=== PATIENT | male | born 1990 | race Caucasian/White ===

== ENCOUNTER 2018-04-22 18:33 | Inpatient (IN) | payer BC, OTHER ==
[~2018-04-22] VITALS: Ht 182.9 cm; Wt 65.8 kg
[2018-04-22 20:15] VITALS: BP 118/63
--- NOTE | 2018-04-22 20:25 | NUR ---
INTAKE ASSESSMENT BP: 118/63, HR:60, RR:16, SpO2:95%, T:98 Pt is in stable condition and is able to be admitted on the unit. Unit protocols regarding medications and vital signs Q4H were explained. Pt verbalized understanding. Will continue admission upon arrival on the unit.
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
[2018-04-23] MEDS ORDERED: LORAZEPAM 1 MG TABLET PO PRN (00:30)
[2018-04-23] MEDS ORDERED: ONDANSETRON ODT 4 MG TAB.RAPDIS SL PRN (00:30)
[2018-04-23] MEDS ORDERED: MIRALAX 17 GM POWD.PACK PO PRN (00:30)
[2018-04-23] MEDS ORDERED: LORAZEPAM 2 MG/1 ML VIAL IM PRN (00:30)
[2018-04-23] MEDS ORDERED: ACETAMINOPHEN 325 MG TABLET PO PRN (00:30)
[2018-04-23] MEDS ORDERED: MAGNESIUM HYDROXIDE 30 ML LIQUID UDC PO PRN (00:30)
[2018-04-23] MEDS ORDERED: DICYCLOMINE HCL 20 MG TABLET PO PRN (00:30)
[2018-04-23] MEDS ORDERED: LOPERAMIDE HCL 2 MG CAPSULE PO PRN ×2 (00:30)
[2018-04-23] MEDS ORDERED: diphenhydrAMINE 50 MG CAPSULE PO PRN (00:30)
[2018-04-23] MEDS ORDERED: ONDANSETRON 4 MG/2 ML VIAL IM PRN (00:30)
[2018-04-23] MEDS ORDERED: BUPRENORPHINE HCL 2 MG TAB.SUBL SL PRN (00:30)
[2018-04-23] MEDS ORDERED: IBUPROFEN 400 MG TABLET PO PRN (00:30)
[2018-04-23] MEDS ORDERED: THIAMINE HCL 200 MG/2 ML VIAL IM ONE (00:30)
[2018-04-23] MEDS ORDERED: MAG HYDROX/AL HYDROX/SIMETH 30 ML LIQUID UDC PO PRN (00:30)
[2018-04-23 00:40] VITALS: BP 121/69
[2018-04-23 01:36] LABS: ALANINE AMINOTRANSFERASE 33 U/L (16-63); ALKALINE PHOSPHATASE 72 U/L (50-136); AMYLASE 77 U/L (25-115); ASPARTATE AMINOTRANSFERASE 22 U/L (15-37); BILIRUBIN,TOTAL 0.5 mg/dL (0.2-1.0); CARBON DIOXIDE 31 mmol/L (21-32); CHLORIDE 100 mmol/L (98-107); CREATININE 0.9 mg/dL (0.6-1.3); GLUCOSE 109 mg/dL (74-106); LIPASE 111 U/L (73-393); MAGNESIUM 1.9 mg/dL (1.8-2.4); POTASSIUM 3.8 mmol/L (3.5-5.1); TOTAL PROTEIN, SERUM 6.8 g/dL (6.4-8.2); UREA NITROGEN, BLOOD 15 mg/dL (7-18)
[2018-04-23 01:44] LABS: BASOPHILS # (AUTO) 0.1 K/uL (0.0-8.0); EOSINOPHILS # (AUTO) 0.1 K/uL (0.0-0.7); EOSINOPHILS % (AUTO) 2.2 % (0.0-7.0); HEMATOCRIT 42.6 % (36.7-47.1); HEMOGLOBIN 15.1 g/dL (12.5-16.3); LYMPHOCYTES # (AUTO) 1.5 K/uL (20.0-40.0); LYMPHOCYTES % (AUTO) 25.8 % (20.5-51.5); MEAN CORPUSCULAR HEMOGLOBIN 33.8 uug (23.8-33.4); MEAN CORPUSCULAR HGB CONC 35 g/dL (32.5-36.3); MEAN CORPUSCULAR VOLUME 95.6 fL (73.0-96.2); MONOCYTES # (AUTO) 0.4 K/uL (2.0-10.0); MONOCYTES % (AUTO) 7.7 % (0.0-11.0); NEUTROPHILS # (AUTO) 3.7 K/uL (1.8-8.9); NEUTROPHILS % (AUTO) 63.3 % (38.5-71.5); PLATELET COUNT (AUTO) 144 K/uL (152-348); RED BLOOD CELL COUNT(AUTO) 4.45 MIL/uL (4.06-5.63); WHITE BLOOD COUNT (AUTO) 5.8 K/uL (3.6-10.2)
[2018-04-23 01:45] LABS: ETHANOL < 3 MG/DL (0-0)
[2018-04-23] MEDS ORDERED: PROP40SO PO (03:57)
[2018-04-23] MEDS ORDERED: MV-M1TAB21 PO (03:57)
[2018-04-23] MEDS ORDERED: MESA1.2T3 PO (03:57)
[2018-04-23] MEDS ORDERED: ONDA4TAB11 PO (03:57)
[2018-04-23] MEDS ORDERED: TRAZ-214 PO (03:57)
[2018-04-23] MEDS ORDERED: CLON0.1T PO (03:57)
[2018-04-23] MEDS ORDERED: LISD30CA2 PO (03:57)
[2018-04-23] MEDS ORDERED: ACET-2605 PO (03:57)
[2018-04-23 04:21] VITALS: BP 125/68
--- NOTE | 2018-04-23 04:24 | NUR ---
CIWA/COWS Patient is noted awake. He was able to provide urine drug screen. CIWA/COWS assessment completed. Patient is noted with increased anxiety and intermittent nausea. Patient requested for a small snack and denies any medication at the moment. He states "ill wait until the morning." Will continue to monitor.
[2018-04-23 05:08] LABS: *AMPHETAMINE, URINE POSITIVE (NEGATIVE); *BARBITURATE, URINE NEGATIVE (NEGATIVE); *CANNABINOID, URINE NEGATIVE (NEGATIVE); *COCCAINE, URINE NEGATIVE (NEGATIVE); *OPIATE, URINE POSITIVE (NEGATIVE); *PHENCYCLIDINE SCREEN,URINE NEGATIVE (NEGATIVE)
--- NOTE | 2018-04-23 07:21 | NUR ---
End of Shift Patient is in his room sleeping. Breathing even and non labored. Patient is a 27 year old male admitted for ETOH withdrawal and intermittent use of Heroin. Patient is currently receiving PRN medications for increased signs and symptoms of withdrawal. No PRN medications administered. Patient is noted to be restless and verbalizing increased anxiety. Last noted CIWA 3 and COWS 3. Patient noted to sleep a total of 6 hours. All needs attended to promptly. Will endorse to continue plan of care as ordered.
[2018-04-23 08:00] VITALS: BP 102/52
--- NOTE | 2018-04-23 08:00 | NUR ---
Start of Shift Notes/COWS/CIWA Assessment: Received endorsement from night nurse. Patient is a 27 year old male admitted for ETOH/opiate withdrawal who was placed on PRNs at this time. Per night report, patient was admitted during the night. No PRNs given. Last COWS 3/CIWA 3. Slept for 6 hours. Patient is currently in his room. Appears disheveled, uncombed hair, unshaven, with dark circles under eyes. Poor regards to hygiene noted. Appears with worried facial expression, affect is flat. Encouraged maintenance of personal hygiene and space. Redirection provided. Reassurance provided. Educated patient on his current plan of care for the day and his medication regimen. Encouraged oral fluid intake and encouraged group participation to learn new skills to prevent relapse. Will continue to monitor and provide support.
[2018-04-23] MEDS: THIAMINE HCL 100 MG TABLET PO SCH (09:01)
[2018-04-23] MEDS: FOLIC ACID 1 MG TABLET PO SCH (09:01)
[2018-04-23] MEDS: MULTIVITAMINS,THERAPEUTIC TABLET PO SCH (09:01)
[2018-04-23] MEDS: LORAZEPAM 1 MG TABLET PO PRN ×3 (09:01→20:59)
--- NOTE | 2018-04-23 09:01 | NUR ---
Ativan 1 mg PO given: Patient's CIWA 14, presented with restlessness, anxiety, agitation, intermittent perspiration and gross tremors. Medicated patient with Ativan 1 mg PO as ordered. Will monitor for effectiveness.
--- NOTE | 2018-04-23 10:01 | NUR ---
Re-assessment: Ativan CIWA 12, patient continues to present with gross tremors, anxiety, agitation and intermittent perspiration. He verbalizes "it's less now." PRN Ativan 1 mg PO was effective.
[2018-04-23 12:00] VITALS: BP 125/81
--- NOTE | 2018-04-23 12:00 | NUR ---
COWS/CIWA Assessment: COWS 8,CIWA 14, patient continues to present with intermittent perspiration, gross tremors, anxiety, agitation, sweats, and restlessness and generalized discomfort. Will continue to medicate patient as ordered and provide support.
[2018-04-23] MEDS: METHOCARBAMOL 750 MG TABLET PO PRN (12:05)
[2018-04-23] MEDS: CLONIDINE HCL 0.1 MG TABLET PO PRN (12:05)
--- NOTE | 2018-04-23 12:05 | NUR ---
Ativan 1 mg/Robaxin 750mg/Clonidine 0.1mg PO given: Patient noted with CIWA 14 due to increased anxiety, chills, hot flashes, intermittent perspiration, restlessness and generalized discomfort. He states "I feel achy, like a 5 out of 10." Medicated patient with Ativan 1 mg, Robaxin 750 mg PO and Clonidine 0.1mg PO as ordered. Will monitor for effectiveness.
--- NOTE | 2018-04-23 13:05 | NUR ---
CIWA Re-assessment/Re-assessment Ativan, Clonidine and Robaxin: CIWA 8, patient continues to present with gross tremors, anxiety, and agitation. Patient verbalizes relief from chills and hot flashes, as well as myalgia. He rates his pain level is now a 1 out of 10. PRN Ativan, Clonidine and Robaxin were effective.
[2018-04-23 16:00] VITALS: BP 101/71
--- NOTE | 2018-04-23 16:35 | NUR ---
COWS/CIWA Assessment COWS 7/CIWA 4, patient continues to present with restlessness, chills, hot flashes, tremors felt but not observed. No need to medicate patient at this dimitris per PRN orders.
[2018-04-23] MEDS ORDERED: MESALAMINE 1.2 GM PO SCH (18:00)
--- NOTE | 2018-04-23 19:05 | NUR ---
End of Shift Notes: Patient continues to be on PRNs as ordered to manage ETOH and opiate withdrawal symptoms. VS monitored closely. No significant abnormalities noted. Withdrawal symptoms were closely monitored. Initial COWS 9/CIWA 14, patient presented with gross tremors, anxiety, agitation, intermittent perspiration, facial flushing, chills, hot flashes, myalgia, nervousness, restlessness, difficulty concentrating, anhedonia, fatigue, malaise, palpitations and tachycardia. Medicated patient with Ativan 1 mg PO for CIWA 14 at 0901 and at 1205. He was also given PRN Robaxin and Clonidine at 1205 for chills, hot flashes, myalgia and intermittent perspiration. Last COWS 7/CIWA 4. Unable to participate in group and activities due to his withdrawal symptoms. Appetite fair. All needs met and attended. Will continue to monitor closely.
--- NOTE | 2018-04-23 19:30 | NUR ---
Start of Shift Patient Received. Patient is noted in his bed, awake, alert and verbally responsive. Breathing even and non labored. Per endorsement, patient continues on PRN medications for increased signs and symptoms of withdrawal. He has been noted to be isolative to room, flat, depressed affect. Patient received PRN Robaxin, Clonidine, and Ativan x2. Last noted CIWA 12 and COWS 12. Upon rounds, patients room is noted to be odorous and cluttered with trash. All needs attended to promptly. Will continue plan of care as ordered.
--- NOTE | 2018-04-23 19:30 | NUR ---
Start of Shift Patient Received. Patient is noted in his bed, awake, alert and verbally responsive. Breathing even and non labored. Per endorsement, patient has completed a 5 day Ativan taper and is set for discharge tomorrow 04/24/18. Patient was noted to be isolative to room and only participating in smoking breaks. Patient received PRN Vistaril and Clonidine with medication noted to be effective. Last noted CIWA 6. Upon rounds, patient is noted to be isolative, disheveled, flat, with depressed affect. All needs attended to promptly. Will continue plan of care as ordered. Addendum: 04/23/18 at 2242 by CAREN DA SILVA LVN ENTERED IN ERROR
[2018-04-23 20:56] VITALS: BP 115/74
--- NOTE | 2018-04-23 21:05 | NUR ---
PRN Medication Administration Patient is noted verbalizing increased anxiety, restlessness, agitation, increased sweats and chills, tremulous, and light sensitivity. CIWA noted to be 13. PRN Ativan 1mg administered. Patient is requesting for Trazodone noted to be given at a later time. Will continue to monitor.
[2018-04-23] MEDS: TRAZODONE 100 MG TABLET PO SCH (21:56)
--- NOTE | 2018-04-23 22:00 | NUR ---
PRN Medication Reassessment patient is noted in bed awake and verbally responsive. Breathing even and non labored. Patient received PRN Ativan 1 mg for CIWA of 13. Patient is able to verbalize medication was effective in minimizing anxiety, agitation, restlessness. CIWA noted to be 4. PRN Ativan noted effective. Will continue to monitor.
--- NOTE | 2018-04-24 00:53 | NUR ---
Vitals Refused Patient is noted in bed with eyes closed. Breathing even and non labored. No signs of restlessness of discomfort noted. Vital signs refused. COWS and CIWA not completed as per order. Will continue to monitor.
--- NOTE | 2018-04-24 04:00 | NUR ---
Vitals Refused Patient is noted in bed sleeping. breathing even and non labored. No signs of pain or discomfort noted. No facial grimacing noted. Vitals Refused. COWS and CIWA not able to be completed as per order. All needs attended to promptly. Will continue plan of care as ordered.
[2018-04-24 04:06] LABS: HEPATITIS B SURFACE AG Negative (Negative)
[2018-04-24] MEDS: MESALAMINE 400 MG CAPSULE.ER PO SCH ×3 (06:21→21:00)
--- NOTE | 2018-04-24 07:04 | NUR ---
End of Shift Patient is in bed sleeping but easily arousable to verbal stimuli. Breathing even and non labored. Patient continues on PRN medications for increased signs and symptoms of withdrawal. Patient continues to be isolative, flat, depressed affect. PRN Ativan administered with medication noted to be effective. Last noted CIWA 4 and COWS 3. Patient noted to sleep a total of 8 hours. All needs attended to promptly. Will continue plan of care as ordered.
[2018-04-24 08:00] VITALS: BP 128/79
--- NOTE | 2018-04-24 08:00 | NUR ---
Start of Shift Notes/COWS/CIWA Assessment: Received endorsement from night nurse. Patient is a 27 year old male admitted for ETOH/opiate withdrawal who was placed on PRNs at this time. Per night report, patient was given Ativan 1 mg during the night. Last COWS 3/CIWA 4. Slept for 8 hours. Patient is currently in his room. Appears disheveled, uncombed hair, unshaven, with dark circles under eyes. Poor regards to hygiene noted. Appears with worried facial expression, affect is flat. Encouraged maintenance of personal hygiene and space. Garbage in the room was disposed of. Redirection provided. Reassurance provided. COWS 7/CIWA 8, patient presents with increased anxiety, agitation, gross tremors, intermittent perspiration, chills and hot flashes. Educated patient on his current plan of care for the day and his medication regimen. Encouraged oral fluid intake and encouraged group participation to learn new skills to prevent relapse. Will continue to monitor and provide support.
[2018-04-24] MEDS ORDERED: TUBERCULIN,PURIF.PROT.DERIV. 5 TU/0.1 ML TEST ID ONE (09:00)
[2018-04-24] MEDS: MULTIVITAMINS,THERAPEUTIC TABLET PO SCH (09:53)
[2018-04-24] MEDS: THIAMINE HCL 100 MG TABLET PO SCH (09:53)
[2018-04-24] MEDS: FOLIC ACID 1 MG TABLET PO SCH (09:53)
[2018-04-24 12:00] VITALS: BP 112/62
--- NOTE | 2018-04-24 12:28 | NUR ---
COWS/CIWA Assessment: COWS 6/CIWA 8, patient continues to present with anxiety, agitation, intermittent perspiration, fatigue, chills and hot flashes and restlessness. Offered PRNs but patient refused. Support provided. Oral fluids encouraged. Will continue to monitor.
[2018-04-24] MEDS: CLONIDINE HCL 0.1 MG TABLET PO PRN ×2 (13:26→22:13)
[2018-04-24] MEDS: METHOCARBAMOL 750 MG TABLET PO PRN ×2 (13:26→22:13)
--- NOTE | 2018-04-24 13:26 | NUR ---
Clonidine 0.1mg PO/Robaxin 750 mg PO given: Patient complained of chills, hot flashes and increased anxiety as well as 6/10 generalized myalgia. Non-pharmacological interventions provided but ineffective. Medicated patient with Clonidine 0.1mg PO and Robaxin 750 mg PO as ordered. Will monitor for effectiveness.
--- NOTE | 2018-04-24 14:26 | NUR ---
Re-assessment: Clonidine and Robaxin Patient verbalizes mild relief from anxiety and rates his PL as a 2/10. PRN Clonidine and Robaxin effective.
[2018-04-24] MEDS: HYDROXYZINE PAMOATE 25 MG CAPSULE PO PRN ×2 (14:58→22:13)
--- NOTE | 2018-04-24 14:58 | NUR ---
Vistaril 50 mg PO given: Patient requested for Vistaril 50 mg PO for increased anxiety due to the discharge process. Reassurance and redirection was provided. Medicated patient with Vistaril 50 mg PO as ordered. WIll monitor for effectiveness.
--- NOTE | 2018-04-24 15:16 | NUR ---
Therapist prompted client to attend group therapy.
--- NOTE | 2018-04-24 15:58 | NUR ---
Re-assessment: Vistaril Patient verbalizes mild relief from anxiety. PRN Vistaril effective.
[2018-04-24 16:00] VITALS: BP 109/64
--- NOTE | 2018-04-24 16:48 | NUR ---
COWS/CIWA Assessment: COWS 5/CIWA 7, patient continues to present with s/s of withdrawal m/b gross tremors, mild anxiety, agitation and intermittent perspiration with complains of tolerable myalgia. Will continue to offer support and encourage oral fluid intake. Patient is to be discharged tomorrow.
--- NOTE | 2018-04-24 19:07 | NUR ---
End of Shift Notes: Patient continues to be on PRNs as ordered to manage ETOH and opiate withdrawal symptoms. VS monitored closely. No significant abnormalities noted. Withdrawal symptoms were closely monitored. Initial COWS 5/CIWA 7, patient presented with gross tremors, anxiety, agitation, intermittent perspiration, facial flushing, chills, hot flashes, myalgia, nervousness, restlessness, difficulty concentrating, anhedonia, fatigue, malaise, palpitations and tachycardia. Medicated patient with Clonidine, and Robaxin at 1326 and Vistaril at 1458. Last COWS 5/CI 7. Participated in group and activities. Patient will be discharging tomorrow. Appetite good . All needs met and attended. Will continue to monitor closely.
--- NOTE | 2018-04-24 20:00 | NUR ---
Start of Shift Received 27 year old male admitted to [facility] on 04/22/18 for Medically Supervised withdrawal from ETOH and Opiates. PRN Clonidine, Robaxin, and Vistaril given during day shift. Last COWS 5/CIWA 7 a@1600. Pt flushed, hoarding food, irritable, suspicious, depressed, and worried. Planned discharge in AM. Safety measures in use, Continue to monitor.
[2018-04-24 20:26] VITALS: BP 111/72
[2018-04-24] MEDS: TRAZODONE 100 MG TABLET PO SCH (20:54)
--- NOTE | 2018-04-24 22:14 | NUR ---
PRN Clonidine, Vistaril and Robaxin Patient c/o increasing anxiety, agitation and generalized muscle pain=6/10. HT=531/83. Administered Clonidine 0.1 mg PO PRN, Vistaril 50 mg PO PRN and Robaxin 750 mg PO PRN. Will reassess.
--- NOTE | 2018-04-24 23:15 | NUR ---
PRN Medication Reassessment Patient is noted in bed with his eyes closed. Breathing even and non labored. No restlessness or discomfort noted. PRN Clonidine, vistaril, and Robaxin noted to be effective. Will continue to monitor.
--- NOTE | 2018-04-25 00:13 | NUR ---
Vitals Patient is noted in bed with eyes closed. Breathing even and non labored. No signs of restlessness or discomfort noted. Patient refused Vitals. COWS and CIWA not able to be completed as per order. Will continue plan of care as ordered.
--- NOTE | 2018-04-25 04:02 | NUR ---
Vitals patient is noted in bed with his eyes closed. Breathing even and non labored. No signs of restlessness or discomfort noted. Vitals Refused. CIWA and COWS not able to be completed as per order. Will continue to monitor.
[2018-04-25] MEDS: MESALAMINE 400 MG CAPSULE.ER PO SCH (06:31)
--- NOTE | 2018-04-25 06:46 | NUR ---
End of Shift Endorsing care of 27 year old male admitted to [facility] on 04/22/18 for Medically Supervised withdrawal from ETOH and Opiates. PRN Clonidine, Robaxin, and Vistaril given this shift with positive effect.. Last COWS 5/CIWA 7 a@1999. Pt lying in bed with eyes closed resting. Respirations even and unlabored. Planned discharge this AM. Safety measures in use. PO intake of 1710 ml. voided x 3, no BM, and slept 8 hours.
--- NOTE | 2018-04-25 07:45 | NUR ---
Start Of Shift Pt is a 27 y/o M admitted on 03/22/18 for medically supervised ETOH, and heroin withdrawal. Pt is medically cleared to be discharged today. Received pt laying in bed still drowsy from sleep. Pt states he is still dealing with some anxiety and body aches. Last COWS 5 and CIWA 7, robaxin, clonidine, vistaril prns given last night. Slept 8 hrs. Side rails upx2, bed in low position, and call light is within reach. Safety measures in place. Will continue to monitor. Addendum: 04/25/18 at 0842 by JACOBY TYLER RN 799 COWS 5 and CIWA 7.
[2018-04-25 08:00] VITALS: BP 103/62
[2018-04-25] MEDS: FOLIC ACID 1 MG TABLET PO SCH (09:09)
[2018-04-25 09:10] VITALS: BP 106/62
[2018-04-25] MEDS: MULTIVITAMINS,THERAPEUTIC TABLET PO SCH (09:10)
[2018-04-25] MEDS: CLONIDINE HCL 0.1 MG TABLET PO PRN (09:10)
[2018-04-25] MEDS: THIAMINE HCL 100 MG TABLET PO SCH (09:10)
[2018-04-25] MEDS: METHOCARBAMOL 750 MG TABLET PO PRN (09:11)
[2018-04-25] MEDS: HYDROXYZINE PAMOATE 25 MG CAPSULE PO PRN (09:11)
--- NOTE | 2018-04-25 09:11 | NUR ---
PRN Bentyl 20 mg po, robaxin 750 mg po, clonidine 0.1 mg po, ibuprofen 600 mg po, and vistaril 50 mg po PRNs given for generalized body aches, sweating, anxiety, agitation, cold/hot flashes, stomach cramps. Will monitor and reassess.
--- NOTE | 2018-04-25 09:58 | NUR ---
Discharge Note Pt is in stable condition, a/ox4, respirations even and unlabored. Last COWS 5 and CIWA 7. Pt states he is ready to be discharged and is going home. Pt d/c instructions given to pt and pt verbalized understanding. Pt has left the building with all belongings, discharge paperwork, home meds at 04/25/18. Addendum: 04/25/18 at 1103 by JACOBY TYLER RN Pt has verbalized prn meds were effective and pt felt ready to be discharged.
== END 2018-04-25 09:53 | disposition home or self-care (01) | DRG 895 ==
LOC: SRC 19:41
PROVIDERS: ADMIT Family Medicine Addiction Medicine; ATTEND Family Medicine Addiction Medicine
PROC: HZ2ZZZZ Detoxification Services for Substance Abuse Treatment (ICD-10-PCS; principal; 2018-04-22)
PROC: HZ31ZZZ Individual Counseling for Substance Abuse Treatment, Behavioral (ICD-10-PCS; 2018-04-24)
PROC: HZ41ZZZ Group Counseling for Substance Abuse Treatment, Behavioral (ICD-10-PCS; 2018-04-24)
DX: F11.23 Opioid dependence with withdrawal (principal); K51.90 Ulcerative colitis, unspecified, without complications; F50.2 Bulimia nervosa; F10.230 Alcohol dependence with withdrawal, uncomplicated; Y90.9 Presence of alcohol in blood, level not specified; F90.9 Attention-deficit hyperactivity disorder, unspecified type; Z91.89 Other specified personal risk factors, not elsewhere classified; Z79.899 Other long term (current) drug therapy; Z91.5 Personal history of self-harm; F41.9 Anxiety disorder, unspecified; F15.11 Other stimulant abuse, in remission; F32.9 Major depressive disorder, single episode, unspecified; F13.239 Sedative, hypnotic or anxiolytic dependence with withdrawal, unspecified
CPT/HCPCS: 36415; 70030-TC; 80307; 80324; 80361; 83690; 83735; 84443; 85025; 86580; 86592; 86705; 86803; 87340; 87806; G0480